=== PATIENT | female | born 1975 | race American Indian/Alaskan Native ===

== ENCOUNTER 2020-01-23 21:36 | Emergency (ER) | payer MEDICAID ==
[2020-01-23] MEDS ORDERED: Ketorolac 60 MG/2 ML SDV IM ONE (22:18)
[2020-01-23] MEDS ORDERED: Lidocaine 1% 20 ML MDV INJECT ONE (22:18)
[2020-01-23] MEDS ORDERED: Bacitracin Oint 1 GM U/D Packet TOP ONE (22:18)
--- NOTE | 2020-01-23 22:22 | EDM.PDOC ---
ED HPI GENERAL MEDICAL PROBLEM - General Chief Complaint: Skin Complaint Stated Complaint: DOG BITE Time Seen by Provider: 01/23/20 22:19 Source of Information: Reports: Patient History Limitations: Reports: No Limitations - History of Present Illness INITIAL COMMENTS - FREE TEXT/NARRATIVE: pt was playing basketball in [place] and they were heading for the car when the dog grabbed the back of her left leg. He was shaking his head and did tear an area behind the knee. The pt has chronic back problems and from twisting is having some spasms in her back. Onset: Today, Sudden Duration: Hour(s): Location: Reports: Lower Extremity, Left Associated Symptoms: Reports: No Other Symptoms Left Lower Leg Pain Score (Numeric/FACES): 8 - Related Data Allergies Allergy/AdvReac Type Severity Reaction Status Date / Time simvastatin Allergy Itching Verified 01/23/20 21:54 trazodone Allergy Headache Verified 01/23/20 21:54 Home Meds: Home Meds ALPRAZolam [Alprazolam] 2.5 mg PO DAILY 01/23/20 [History] Gabapentin [Neurontin] 3 tab PO TID 01/23/20 [History] Linagliptin [Tradjenta] 1 tab PO DAILY 01/23/20 [History] PARoxetine HCL [Paroxetine HCl] 60 mg PO BEDTIME 01/23/20 [History] metFORMIN [Glucophage] 1,000 mg PO BIDMEALS 01/23/20 [History] Past Medical History HEENT History: Reports: Impaired Vision Cardiovascular History: Reports: High Cholesterol APPLICATION 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: , Spontaneous Musculoskeletal History: Reports: Fracture Psychiatric History: Reports: Anxiety Endocrine/Metabolic History: Reports: Diabetes, Type II - Infectious Disease History Infectious Disease History: Reports: Chicken Pox - Past Surgical History Female Surgical History: Reports: Tubal Ligation Social & Family History - Tobacco Use Smoking Status *Q: Current Every Day Smoker Years of Tobacco use: 32 Packs/Tins Daily: 0.5 Used Tobacco, but Quit: No Second Hand Smoke Exposure: Yes - Caffeine Use Caffeine Use: Reports: Soda - Alcohol Use Days Per Week of Alcohol Use: 0 - Recreational Drug Use Recreational Drug Use: No ED ROS GENERAL - Review of Systems Review Of Systems: See Below Constitutional: Reports: No Symptoms HEENT: Reports: No Symptoms Respiratory: Reports: No Symptoms Cardiovascular: Reports: No Symptoms Endocrine: Reports: No Symptoms GI/Abdominal: Reports: No Symptoms Musculoskeletal: Reports: Other ( dog bite on the back of her left knee. ) ED EXAM, SKIN/RASH Exam: See Below Text/Narrative:: pt was bite in the back of the left knee. by a unknown dog. They are presently looking for the dog. Exam Limited By: No Limitations General Appearance: Alert, Anxious Extremities: Other ( behind the left knee pt has a 3 inch superficial scratch present. She has a 1 inch flap type tear which is deep to the subq. The area was cleansed well and infiltrated with lidocaine. Th flap was loosely closed with 4 stitches, The pt was warned about the possibly of infection with animal bites ) Course - Vital Signs Last Recorded V/S: Last Vital Signs Temp 36.3 C 01/23/20 22:05 Pulse 96 01/23/20 22:05 Resp 14 01/23/20 22:05 BP 114/68 01/23/20 22:05 Pulse Ox 96 01/23/20 22:05 - Orders/Labs/Meds Meds: Medications Discontinued Medications Generic Name Dose Route Start Last Admin Trade Name Freq PRN Reason Stop Dose Admin Bacitracin 1 dose 01/23/20 22:18 01/23/20 22:35 Bacitracin Oint 1 Gm TOP 01/23/20 22:19 1 dose ONETIME ONE Administration Ketorolac Tromethamine 60 mg 01/23/20 22:18 01/23/20 22:36 Toradol IM 01/23/20 22:19 60 mg ONETIME ONE Administration Lidocaine HCl 20 ml 01/23/20 22:18 01/23/20 22:35 Xylocaine 1% INJECT 01/23/20 22:19 20 ml ONETIME ONE Administration - Re-Assessments/Exams Free Text/Narrative Re-Assessment/Exam: 01/23/20 22:58 the wound was cleansed well, infiltrated with lidocaine and the the flap type wound was loosely closed with 4 stitches of 5-0 prolene,. Departure - Departure Time of Disposition: 22:36 Disposition: Home, Self-Care 01 Condition: Fair Clinical Impression: Dog bite of left knee - Discharge Information Referrals: PCP,None [Primary Care Provider] - Forms: ED Department Discharge Care Plan Goals: apply bacatracin to the site, keep covered. contain the dog and be sure the dog had immunizations . If he is not current contain the dog for 10 days, to be sure he is not getting ill. augmentin 875 bid for 10 days. tyulenol and motrin for discomfort. suture removal in 8 days, rtc if redness or drainage develops. rtc for a recheck Sepsis Event Note (ED) - Evaluation Sepsis Screening Result: No Definite Risk - Focused Exam Vital Signs: Vital Signs Temp Pulse Resp BP Pulse Ox 01/23/20 22:05 36.3 C 96 14 114/68 96 01/23/20 22:03 36.3 C 96 14 114/68 96
== END 2020-01-23 23:14 | disposition home or self-care (01) ==
LOC: JP.ED 21:36
DX: S81.052A Open bite, left knee, initial encounter (principal); F41.9 Anxiety disorder, unspecified; E11.9 Type 2 diabetes mellitus without complications; F17.210 Nicotine dependence, cigarettes, uncomplicated; Z88.8 Allergy status to other drugs, medicaments and biological substances; Z88.5 Allergy status to narcotic agent; Z79.899 Other long term (current) drug therapy; W54.0XXA Bitten by dog, initial encounter; Y93.67 Activity, basketball
CPT/HCPCS: 12001; 96372; 99283; J1885; J2001